=== PATIENT | male | born 1975 | race Caucasian/White ===

== ENCOUNTER 2020-09-10 18:58 | Inpatient (IN) ==
[2020-09-10] MEDS ORDERED: ALPRAZolam 0.5 MG TABLET PO ONE (19:30)
[2020-09-10 20:03] LABS: Bilirubin,Urine Negative (Negative); Blood,Urine Negative (Negative); Clarity,Urine Clear (Clear); Color,Urine Light-Yellow (Yellow); Glucose,Urine (UA) Normal (Normal); Ketones,Urine Negative (Negative); Leukocyte Esterase,Urine Negative (Negative); Nitrite,Urine Negative (Negative); PH,Urine 6.5 pH Units (5.0-8.0); Protein,Urine Trace mg/dL (Neg-Trace); Specific Gravity,Urine 1.022 (1.010-1.025); Urobilinogen,Urine Normal (Normal)
[2020-09-10 20:05] LABS: Basophils # 0.1 K/mcL (0.0-0.2); Basophils % 0.5 %; Eosinophils # 0.1 K/mcL (0.0-0.6); Hemoglobin 14.7 g/dL (12.9-16.9); Immature Granulocytes % 0.3 % (0-4); Lymphocytes # 2.3 K/mcL (0.6-4.6); Lymphocytes % 23.4 %; Mean Corpuscular HGB Conc 32.7 g/dL (31.6-35.5); Mean Corpuscular Hemoglobin 30.9 pg (28.0-33.3); Mean Corpuscular Volume 94.7 fL (83.0-100.0); Mean Platelet Volume 9.9 fL (9.4-12.4); Monocytes # 0.8 K/mcL (0.0-1.3); Monocytes % 7.8 %; Neutrophils # 6.7 K/mcL (1.6-8.9); Platelet Count 194 K/mcL (140-400); Red Blood Count 4.75 M/mcL (4.19-5.50); Red Cell Distribution Width 12.1 % (11.5-14.5)
[2020-09-10 20:17] LABS: Amphetamine Screen,Urine Negative ng/mL (Cutoff=1000); Barbiturate Screen,Urine Negative ng/mL (Cutoff=200); Benzodiazepines Screen,Urine Negative ng/mL (Cutoff=200); Cannabinoid Screen,Urine Negative ng/mL (Cutoff = 50); Cocaine Screen,Urine Negative ng/mL (Cutoff= 300); Opiate Screen,Urine Negative ng/mL (Cutoff=300); Phencyclidine Screen,Urine Negative ng/mL (Cutoff=25)
[2020-09-10 20:19] LABS: Estimated Average Glucose 137 mg/dl
[2020-09-10 20:29] LABS: Acetaminophen < 10 mcg/mL (10-20); BUN/Creatinine Ratio 13 (6-26); Blood Urea Nitrogen 11 mg/dL (6-20); Calcium 8.9 mg/dL (8.6-10.3); Carbon Dioxide 28 mEq/L (23-29); Chloride 103 mEq/L (98-107); Chol/HDL Ratio 4.3 (0-4.9); Cholesterol 108 mg/dL (< 200); Ethanol < 10 mg/dL (Less than 10); Glucose 188 mg/dL (70-105); HDL Cholesterol 25 mg/dL (40-59); LDL Cholesterol,Calculated 23 mg/dL (< 100); Osmolality,Calculated 300 (280-300); Potassium 3.7 mEq/L (3.5-5.1); Salicylate < 2.5 mg/dL (15.0-30.0); Sodium 143 mEq/L (136-145); Triglycerides 301 mg/dL (< 150); eGFR For African Americans > 60 (> 60); eGFR For Non-African Americans > 60 (> 60)
[2020-09-10] MEDS ORDERED: MOM Conc 10 ML UD.LIQ PO PRN (21:44)
[2020-09-10] MEDS ORDERED: hydrOXYzine pamoate 25 MG CAPSULE PO PRN (21:44)
[2020-09-10] MEDS ORDERED: *HR* LORazepam 2 MG/ML VIAL IM PRN (21:44)
[2020-09-10] MEDS ORDERED: *HR* LORazepam 1 MG TABLET PO PRN (21:44)
[2020-09-11] MEDS: Acetaminophen 325 MG TABLET PO PRN (03:52)
[2020-09-11] MEDS: hydrOXYzine pamoate 25 MG CAPSULE PO PRN ×2 (03:52→17:35)
[2020-09-11] MEDS: Famotidine 20 MG TABLET PO SCH ×2 (06:36→15:44)
[2020-09-11] MEDS: OLANZapine 10 MG TAB.RAPDIS PO SCH ×2 (08:43→20:49)
[2020-09-11] MEDS: *HR* Metformin 500 MG TABLET PO SCH ×2 (08:43→16:42)
[2020-09-11] MEDS: CarBAMazepine XR (12 hr) 100 MG TAB PO SCH ×2 (08:43→20:49)
[2020-09-11] MEDS: lisinopriL 20 MG TABLET PO SCH (08:44)
[2020-09-11] MEDS: Metoprolol XL (24 HR) Succ 50 MG TAB.ER.24H PO SCH (08:44)
[2020-09-11] MEDS ORDERED: Gabapentin 400 MG CAPSULE PO SCH ×2 (09:00→15:00)
[2020-09-11] MEDS: Nicotine 2 MG GUM BC PRN ×2 (10:42→17:39)
[2020-09-11] MEDS: modafiniL 100 MG TABLET PO SCH (13:04)
[2020-09-11] MEDS: traZODone 50 MG TABLET PO PRN (20:49)
[2020-09-12] MEDS: Acetaminophen 325 MG TABLET PO PRN (03:54)
[2020-09-12] MEDS: Famotidine 20 MG TABLET PO SCH ×2 (06:17→16:59)
[2020-09-12] MEDS: OLANZapine 10 MG TAB.RAPDIS PO SCH ×2 (08:50→21:00)
[2020-09-12] MEDS: CarBAMazepine XR (12 hr) 100 MG TAB PO SCH ×2 (08:50→20:59)
[2020-09-12] MEDS: *HR* Metformin 500 MG TABLET PO SCH ×2 (08:50→16:59)
[2020-09-12] MEDS: lisinopriL 20 MG TABLET PO SCH (08:51)
[2020-09-12] MEDS: modafiniL 100 MG TABLET PO SCH ×2 (08:51→12:35)
[2020-09-12] MEDS: Metoprolol XL (24 HR) Succ 50 MG TAB.ER.24H PO SCH (08:51)
[2020-09-12] MEDS: Nicotine 2 MG GUM BC PRN ×4 (09:00→21:56)
[2020-09-12] MEDS: traZODone 50 MG TABLET PO PRN (21:00)
[2020-09-13] MEDS: Mag Hydrox/Al Hydrox/Simeth 30 ML UDC PO PRN (04:44)
[2020-09-13] MEDS: Famotidine 20 MG TABLET PO SCH ×3 (06:35→21:04)
[2020-09-13] MEDS: *HR* Metformin 500 MG TABLET PO SCH ×2 (08:57→16:37)
[2020-09-13] MEDS: Metoprolol XL (24 HR) Succ 50 MG TAB.ER.24H PO SCH (08:57)
[2020-09-13] MEDS: Acetaminophen 325 MG TABLET PO PRN (08:58)
[2020-09-13] MEDS: modafiniL 100 MG TABLET PO SCH ×2 (08:58→11:18)
[2020-09-13] MEDS: lisinopriL 20 MG TABLET PO SCH (08:58)
[2020-09-13] MEDS: Nicotine 2 MG GUM BC PRN ×3 (08:59→18:52)
[2020-09-13] MEDS: CarBAMazepine XR (12 hr) 100 MG TAB PO SCH ×2 (10:01→21:04)
[2020-09-13] MEDS: traZODone 50 MG TABLET PO PRN (21:04)
[2020-09-13] MEDS: OLANZapine 10 MG TAB.RAPDIS PO SCH (21:05)
[2020-09-14] MEDS: Acetaminophen 325 MG TABLET PO PRN (06:45)
[2020-09-14] MEDS: Mag Hydrox/Al Hydrox/Simeth 30 ML UDC PO PRN (06:46)
[2020-09-14] MEDS: lisinopriL 20 MG TABLET PO SCH (09:30)
[2020-09-14] MEDS: Famotidine 20 MG TABLET PO SCH ×2 (09:30→21:00)
[2020-09-14] MEDS: modafiniL 100 MG TABLET PO SCH ×2 (09:31→13:18)
[2020-09-14] MEDS: Metoprolol XL (24 HR) Succ 50 MG TAB.ER.24H PO SCH (09:32)
[2020-09-14] MEDS: *HR* Metformin 500 MG TABLET PO SCH ×2 (09:33→16:52)
[2020-09-14] MEDS: Nicotine 2 MG GUM BC PRN ×3 (09:37→18:00)
[2020-09-14] MEDS: CarBAMazepine XR (12 hr) 100 MG TAB PO SCH ×2 (13:12→21:46)
[2020-09-14] MEDS: OLANZapine 10 MG TAB.RAPDIS PO SCH (21:00)
[2020-09-14] MEDS: traZODone 50 MG TABLET PO PRN (21:05)
[2020-09-15] MEDS: Acetaminophen 325 MG TABLET PO PRN (03:07)
[2020-09-15] MEDS: Nicotine 2 MG GUM BC PRN (08:58)
[2020-09-15 09:33] VITALS: BP 119/80
[2020-09-15] MEDS: *HR* Metformin 500 MG TABLET PO SCH (09:33)
[2020-09-15] MEDS: Famotidine 20 MG TABLET PO SCH (09:33)
[2020-09-15] MEDS: Metoprolol XL (24 HR) Succ 50 MG TAB.ER.24H PO SCH (09:34)
[2020-09-15] MEDS: modafiniL 100 MG TABLET PO SCH (09:35)
[2020-09-15] MEDS: lisinopriL 20 MG TABLET PO SCH (09:35)
[2020-09-15] MEDS: CarBAMazepine XR (12 hr) 100 MG TAB PO SCH (10:32)
== END 2020-09-15 10:05 | disposition home or self-care (01) | DRG 885 ==
LOC: EMEROOARM 18:58 → 1ANU 21:35
PROVIDERS: ADMIT Psychiatry & Neurology Forensic Psychiatry; ATTEND Psychiatry & Neurology Forensic Psychiatry

== ENCOUNTER 2021-01-12 19:06 | Inpatient (IN) ==
[2021-01-12 19:57] LABS: Bilirubin,Urine Negative (Negative); Blood,Urine Negative (Negative); Clarity,Urine Clear (Clear); Color,Urine Yellow (Yellow); Glucose,Urine (UA) Normal (Normal); Ketones,Urine Negative (Negative); Leukocyte Esterase,Urine Negative (Negative); Nitrite,Urine Negative (Negative); Protein,Urine Trace mg/dL (Neg-Trace); Specific Gravity,Urine 1.027 (1.010-1.025); Urobilinogen,Urine Normal (Normal)
[2021-01-12 20:07] LABS: Amphetamine Screen,Urine Negative ng/mL (Cutoff=1000); Barbiturate Screen,Urine Negative ng/mL (Cutoff=200); Benzodiazepines Screen,Urine Negative ng/mL (Cutoff=200); Cannabinoid Screen,Urine Negative ng/mL (Cutoff = 50); Cocaine Screen,Urine Negative ng/mL (Cutoff= 300); Opiate Screen,Urine Negative ng/mL (Cutoff=300); Phencyclidine Screen,Urine Negative ng/mL (Cutoff=25)
[2021-01-12] MEDS ORDERED: *HR* LORazepam 1 MG TABLET PO ONE (20:11)
[2021-01-12 20:19] LABS: Acetaminophen < 10 mcg/mL (10-20); BUN/Creatinine Ratio 16 (6-26); Blood Urea Nitrogen 14 mg/dL (6-20); Calcium 9.7 mg/dL (8.6-10.3); Carbon Dioxide 30 mEq/L (23-29); Chloride 103 mEq/L (98-107); Chol/HDL Ratio 4.8 (0-4.9); Cholesterol 126 mg/dL (< 200); Ethanol < 10 mg/dL (Less than 10); Glucose 131 mg/dL (70-105); HDL Cholesterol 26 mg/dL (40-59); LDL Cholesterol,Calculated 41 mg/dL (< 100); Osmolality,Calculated 294 (280-300); Potassium 3.7 mEq/L (3.5-5.1); Salicylate < 2.5 mg/dL (15.0-30.0); Sodium 141 mEq/L (136-145); Triglycerides 294 mg/dL (< 150); eGFR For African Americans > 60 (> 60); eGFR For Non-African Americans > 60 (> 60)
[2021-01-12 21:08] LABS: Basophils # 0.1 K/mcL (0.0-0.2); Basophils % 0.6 %; Eosinophils # 0.2 K/mcL (0.0-0.6); Eosinophils % 1.5 %; Hematocrit 44.9 % (37.5-50.1); Hemoglobin 14.5 g/dL (12.9-16.9); Immature Granulocytes % 0.4 % (0-4); Lymphocytes # 2.9 K/mcL (0.6-4.6); Lymphocytes % 26.5 %; Mean Corpuscular HGB Conc 32.3 g/dL (31.6-35.5); Mean Corpuscular Volume 95.9 fL (83.0-100.0); Mean Platelet Volume 9.2 fL (9.4-12.4); Monocytes # 0.8 K/mcL (0.0-1.3); Monocytes % 7.5 %; Neutrophils # 6.8 K/mcL (1.6-8.9); Platelet Count 204 K/mcL (140-400); Red Blood Count 4.68 M/mcL (4.19-5.50); Red Cell Distribution Width 12.4 % (11.5-14.5); Segmented Neutrophils % 63.5 %; White Blood Count 10.7 K/mcL (4.3-11.1)
[2021-01-12 21:13] LABS: Estimated Average Glucose 126 mg/dl
[2021-01-12] MEDS ORDERED: hydrOXYzine pamoate 25 MG CAPSULE PO PRN (23:52)
[2021-01-12] MEDS ORDERED: traZODone 50 MG TABLET PO PRN (23:52)
[2021-01-12] MEDS ORDERED: MOM Conc 10 ML UD.LIQ PO PRN (23:52)
[2021-01-12] MEDS ORDERED: *HR* LORazepam 1 MG TABLET PO PRN (23:52)
[2021-01-12] MEDS ORDERED: Mag Hydrox/Al Hydrox/Simeth 30 ML UDC PO PRN (23:52)
[2021-01-12] MEDS ORDERED: *HR* LORazepam 2 MG/ML VIAL IM PRN (23:52)
[2021-01-13] MEDS: Ibuprofen 400 MG TABLET PO PRN (06:13)
[2021-01-13] MEDS: Metoprolol XL (24 HR) Succ 50 MG TAB.ER.24H PO SCH (08:29)
[2021-01-13] MEDS: Gabapentin 300 MG CAPSULE PO SCH ×3 (08:31→20:52)
[2021-01-13] MEDS: lisinopriL 20 MG TABLET PO SCH (08:32)
[2021-01-13] MEDS: Famotidine 20 MG TABLET PO SCH ×2 (08:32→20:53)
[2021-01-13] MEDS: *HR* Metformin 500 MG TABLET PO SCH ×2 (08:32→16:35)
[2021-01-13] MEDS: Gabapentin 400 MG CAPSULE PO SCH ×3 (08:33→20:52)
[2021-01-13] MEDS: CarBAMazepine XR (12 hr) 100 MG TAB PO SCH ×2 (08:33→20:53)
[2021-01-13] MEDS ORDERED: OLANZapine 10 MG TAB.RAPDIS PO SCH (09:00)
[2021-01-13] MEDS: Nicotine 2 MG GUM BC PRN ×3 (11:16→18:59)
[2021-01-13] MEDS: modafiniL 100 MG TABLET PO SCH (12:23)
[2021-01-13] MEDS ORDERED: Ondansetron ODT 4 MG TAB.RAPDIS SL ONE (15:21)
[2021-01-13] MEDS: OLANZapine 10 MG TAB.RAPDIS PO SCH (20:53)
[2021-01-14] MEDS: CarBAMazepine XR (12 hr) 100 MG TAB PO SCH ×2 (08:27→20:37)
[2021-01-14] MEDS: *HR* Metformin 500 MG TABLET PO SCH ×2 (08:28→16:52)
[2021-01-14] MEDS: Metoprolol XL (24 HR) Succ 50 MG TAB.ER.24H PO SCH (08:29)
[2021-01-14] MEDS: Famotidine 20 MG TABLET PO SCH ×2 (08:29→20:36)
[2021-01-14] MEDS: Gabapentin 300 MG CAPSULE PO SCH ×3 (08:31→20:35)
[2021-01-14] MEDS: Gabapentin 400 MG CAPSULE PO SCH ×3 (08:32→20:35)
[2021-01-14] MEDS: modafiniL 100 MG TABLET PO SCH ×2 (08:33→12:41)
[2021-01-14] MEDS: lisinopriL 20 MG TABLET PO SCH (08:33)
[2021-01-14] MEDS: Nicotine 2 MG GUM BC PRN ×3 (08:37→21:29)
[2021-01-14] MEDS: Loratadine 10 MG TABLET PO SCH (13:46)
[2021-01-14] MEDS ORDERED: Ondansetron ODT 4 MG TAB.RAPDIS SL PRN (16:06)
[2021-01-14] MEDS: hydrOXYzine pamoate 25 MG CAPSULE PO PRN (18:06)
[2021-01-14] MEDS: Melatonin 3 MG TABLET PO SCH (20:34)
[2021-01-14] MEDS: OLANZapine 10 MG TAB.RAPDIS PO SCH (20:36)
[2021-01-15] MEDS: Ibuprofen 400 MG TABLET PO PRN (00:12)
[2021-01-15] MEDS: hydrOXYzine pamoate 25 MG CAPSULE PO PRN (09:01)
[2021-01-15] MEDS: Loratadine 10 MG TABLET PO SCH (09:02)
[2021-01-15] MEDS: Gabapentin 400 MG CAPSULE PO SCH ×3 (09:03→21:01)
[2021-01-15] MEDS: lisinopriL 20 MG TABLET PO SCH (09:03)
[2021-01-15] MEDS: modafiniL 100 MG TABLET PO SCH ×2 (09:03→12:51)
[2021-01-15] MEDS: *HR* Metformin 500 MG TABLET PO SCH ×2 (09:04→17:44)
[2021-01-15] MEDS: Famotidine 20 MG TABLET PO SCH ×2 (09:04→21:02)
[2021-01-15] MEDS: Gabapentin 300 MG CAPSULE PO SCH ×3 (09:04→21:00)
[2021-01-15] MEDS: Metoprolol XL (24 HR) Succ 50 MG TAB.ER.24H PO SCH (09:05)
[2021-01-15] MEDS: CarBAMazepine XR (12 hr) 100 MG TAB PO SCH ×2 (09:06→20:59)
[2021-01-15] MEDS: Nicotine 2 MG GUM BC PRN (14:18)
[2021-01-15] MEDS: Melatonin 3 MG TABLET PO SCH (20:57)
[2021-01-15] MEDS: OLANZapine 10 MG TAB.RAPDIS PO SCH (21:02)
[2021-01-16] MEDS: Gabapentin 300 MG CAPSULE PO SCH ×3 (08:18→20:49)
[2021-01-16] MEDS: CarBAMazepine XR (12 hr) 100 MG TAB PO SCH (08:18)
[2021-01-16] MEDS: modafiniL 100 MG TABLET PO SCH ×2 (08:18→11:46)
[2021-01-16] MEDS: Gabapentin 400 MG CAPSULE PO SCH ×3 (08:18→20:49)
[2021-01-16] MEDS: lisinopriL 20 MG TABLET PO SCH (08:19)
[2021-01-16] MEDS: *HR* Metformin 500 MG TABLET PO SCH ×2 (08:19→17:07)
[2021-01-16] MEDS: Famotidine 20 MG TABLET PO SCH ×2 (08:19→20:46)
[2021-01-16] MEDS: Metoprolol XL (24 HR) Succ 50 MG TAB.ER.24H PO SCH (08:19)
[2021-01-16] MEDS: Loratadine 10 MG TABLET PO SCH (08:20)
[2021-01-16] MEDS: Nicotine 2 MG GUM BC PRN (12:53)
[2021-01-16] MEDS: Melatonin 3 MG TABLET PO SCH (20:47)
[2021-01-16] MEDS: OLANZapine 10 MG TAB.RAPDIS PO SCH (20:48)
[2021-01-16] MEDS ORDERED: CarBAMazepine XR (12 hr) 100 MG TAB PO SCH (21:00)
[2021-01-17] MEDS ORDERED: CarBAMazepine XR (12 hr) 100 MG TAB PO SCH (09:00)
[2021-01-17 09:06] VITALS: BP 102/58
[2021-01-17] MEDS: *HR* Metformin 500 MG TABLET PO SCH (09:19)
[2021-01-17] MEDS: modafiniL 100 MG TABLET PO SCH ×2 (09:19→11:46)
[2021-01-17] MEDS: Metoprolol XL (24 HR) Succ 50 MG TAB.ER.24H PO SCH (09:20)
[2021-01-17] MEDS: Famotidine 20 MG TABLET PO SCH (09:20)
[2021-01-17] MEDS: Loratadine 10 MG TABLET PO SCH (09:20)
[2021-01-17] MEDS: Gabapentin 300 MG CAPSULE PO SCH ×2 (09:20→15:39)
[2021-01-17] MEDS: Gabapentin 400 MG CAPSULE PO SCH ×2 (09:20→15:39)
[2021-01-17] MEDS: lisinopriL 20 MG TABLET PO SCH (09:23)
[2021-01-17] MEDS: Nicotine 2 MG GUM BC PRN (09:25)
== END 2021-01-17 16:35 | disposition home or self-care (01) | DRG 885 ==
LOC: EMEROOARM 19:06 → 1ANU 19:06 → SUATTDRO 23:49 → OBSVTOIN 23:49 → 1ANU 01-13 00:20
PROVIDERS: ADMIT Psychiatry & Neurology Psychiatry; ATTEND Psychiatry & Neurology Psychiatry

== ENCOUNTER 2022-05-13 13:19 | Inpatient (IN) ==
[2022-05-13 14:48] LABS: Bilirubin,Urine Negative (Negative); Blood,Urine Negative (Negative); Clarity,Urine Clear (Clear); Color,Urine Light-Yellow (Yellow); Glucose,Urine (UA) Normal (Normal); Ketones,Urine Negative (Negative); Leukocyte Esterase,Urine Negative (Negative); Nitrite,Urine Negative (Negative); Protein,Urine Trace mg/dL (Neg-Trace); Specific Gravity,Urine 1.016 (1.010-1.025); Urobilinogen,Urine Normal (Normal)
[2022-05-13 14:52] LABS: Acetaminophen < 10 mcg/mL (10-20); Alanine Aminotransferase 48 Units/L (7-52); Albumin 4.1 g/dL (3.5-5.7); Albumin/Globulin Ratio 1.6 (1.1-2.2); Alkaline Phosphatase 125 Units/L (34-104); Aspartate Amino Transferase 31 Units/L (13-39); BUN/Creatinine Ratio 21 (6-26); Basophils # 0.1 K/mcL (0.0-0.2); Basophils % 0.8 %; Bilirubin,Direct 0.1 mg/dL (0.0-0.2); Bilirubin,Indirect 0.2 mg/dL (0.0-1.0); Bilirubin,Total 0.3 mg/dL (0.3-1.0); Blood Urea Nitrogen 26 mg/dL (6-20); Calcium 8.8 mg/dL (8.6-10.3); Carbon Dioxide 21 mEq/L (23-29); Chloride 105 mEq/L (98-107); Eosinophils # 0.2 K/mcL (0.0-0.6); Eosinophils % 1.8 %; Ethanol < 10 mg/dL (Less than 10); Globulin 2.5 g/dL (2.4-3.5); Glucose 128 mg/dL (70-105); Hematocrit 39.5 % (37.5-50.1); Immature Granulocytes % 0.5 % (0-4); Lymphocytes # 2.7 K/mcL (0.6-4.6); Mean Corpuscular HGB Conc 32.9 g/dL (31.6-35.5); Mean Corpuscular Hemoglobin 31.7 pg (28.0-33.3); Mean Corpuscular Volume 96.3 fL (83.0-100.0); Mean Platelet Volume 9.6 fL (9.4-12.4); Monocytes # 0.8 K/mcL (0.0-1.3); Monocytes % 7.1 %; Neutrophils # 6.7 K/mcL (1.6-8.9); Osmolality,Calculated 286 (280-300); Platelet Count 231 K/mcL (140-400); Potassium 4.5 mEq/L (3.5-5.1); Red Cell Distribution Width 12.5 % (11.5-14.5); Salicylate < 2.5 mg/dL (15.0-30.0); Segmented Neutrophils % 63.8 %; Sodium 135 mEq/L (136-145); Total Protein 6.6 g/dL (6.4-8.9); White Blood Count 10.5 K/mcL (4.3-11.1); eGFR For African Americans > 60 (> 60); eGFR For Non-African Americans > 60 (> 60)
[2022-05-13 15:03] LABS: Thyroid Stimulating Hormone 1.771 mcIU/mL (0.340-5.600)
[2022-05-13 15:08] LABS: Amphetamine Screen,Urine Negative ng/mL (Cutoff=1000); Barbiturate Screen,Urine Negative ng/mL (Cutoff=200); Benzodiazepines Screen,Urine Negative ng/mL (Cutoff=200); Cannabinoid Screen,Urine Negative ng/mL (Cutoff = 50); Cocaine Screen,Urine Negative ng/mL (Cutoff= 300); Opiate Screen,Urine Negative ng/mL (Cutoff=300); Phencyclidine Screen,Urine Negative ng/mL (Cutoff=25)
[2022-05-13 19:10] LABS: Influenza A PCR Negative (Negative); Influenza B PCR Negative (Negative); Resp. Syncytial Virus PCR Negative (Negative); SARS-CoV-2 by PCR (In House) Negative (Negative)
[2022-05-13] MEDS ORDERED: *HR* LORazepam 2 MG/ML VIAL IM PRN (19:45)
[2022-05-13] MEDS ORDERED: Haloperidol Lactate 5 MG/ML VIAL IM PRN (19:45)
[2022-05-13] MEDS ORDERED: haloperidoL 5 MG TABLET PO PRN (19:45)
[2022-05-13] MEDS ORDERED: *HR* LORazepam 1 MG TABLET PO PRN (19:45)
[2022-05-13] MEDS ORDERED: hydrOXYzine pamoate 25 MG CAPSULE PO PRN (19:47)
[2022-05-13] MEDS ORDERED: modafiniL 100 MG TABLET PO SCH (21:00)
[2022-05-13] MEDS: Melatonin 3 MG TABLET PO SCH (21:50)
[2022-05-13] MEDS: CarBAMazepine XR (12 hr) 100 MG TAB PO SCH (21:50)
[2022-05-13] MEDS: OLANZapine 10 MG TAB.RAPDIS PO SCH (21:50)
[2022-05-13] MEDS: Famotidine 20 MG TABLET PO SCH (21:50)
[2022-05-13] MEDS: *HR* Metformin 500 MG TABLET PO SCH (21:51)
[2022-05-13] MEDS: Gabapentin 400 MG CAPSULE PO SCH (21:51)
[2022-05-13] MEDS: Gabapentin 300 MG CAPSULE PO SCH (21:51)
[2022-05-14] MEDS: CarBAMazepine XR (12 hr) 100 MG TAB PO SCH ×2 (08:55→21:01)
[2022-05-14] MEDS: Metoprolol XL (24 HR) Succ 50 MG TAB.ER.24H PO SCH (08:55)
[2022-05-14] MEDS: Gabapentin 300 MG CAPSULE PO SCH ×3 (08:55→21:02)
[2022-05-14] MEDS: Famotidine 20 MG TABLET PO SCH ×2 (08:56→21:03)
[2022-05-14] MEDS: modafiniL 100 MG TABLET PO SCH ×2 (08:56→13:18)
[2022-05-14] MEDS: Gabapentin 400 MG CAPSULE PO SCH ×3 (08:56→21:03)
[2022-05-14] MEDS: *HR* Metformin 500 MG TABLET PO SCH ×2 (08:56→21:01)
[2022-05-14] MEDS: lisinopriL 20 MG TABLET PO SCH (08:57)
[2022-05-14] MEDS: Acetaminophen 325 MG TABLET PO PRN ×2 (11:04→21:02)
[2022-05-14] MEDS: Ketoconazole 2% CRM 15 GM TUBE TP SCH (11:05)
[2022-05-14] MEDS: Nicotine 21 MG PATCH.TD24 TD SCH (13:19)
[2022-05-14] MEDS: OLANZapine 10 MG TAB.RAPDIS PO SCH (21:02)
[2022-05-14] MEDS: Melatonin 3 MG TABLET PO SCH (21:02)
[2022-05-15] MEDS: Acetaminophen 325 MG TABLET PO PRN ×3 (02:18→20:11)
[2022-05-15 09:02] LABS: Chol/HDL Ratio 4.5 (0-4.9); Cholesterol 141 mg/dL (< 200); HDL Cholesterol 31 mg/dL (40-59); Triglycerides 512 mg/dL (< 150)
[2022-05-15] MEDS: Nicotine 21 MG PATCH.TD24 TD SCH (09:14)
[2022-05-15] MEDS: CarBAMazepine XR (12 hr) 100 MG TAB PO SCH ×2 (09:16→20:54)
[2022-05-15] MEDS: Metoprolol XL (24 HR) Succ 50 MG TAB.ER.24H PO SCH (09:16)
[2022-05-15] MEDS: modafiniL 100 MG TABLET PO SCH ×2 (09:18→11:17)
[2022-05-15] MEDS: lisinopriL 20 MG TABLET PO SCH (09:18)
[2022-05-15] MEDS: Gabapentin 300 MG CAPSULE PO SCH ×3 (09:19→20:54)
[2022-05-15] MEDS: *HR* Metformin 500 MG TABLET PO SCH ×2 (09:19→20:52)
[2022-05-15] MEDS: Gabapentin 400 MG CAPSULE PO SCH ×3 (09:19→20:55)
[2022-05-15] MEDS: Famotidine 20 MG TABLET PO SCH ×2 (09:19→20:54)
[2022-05-15] MEDS: Ketoconazole 2% CRM 15 GM TUBE TP SCH (09:26)
[2022-05-15 12:00] LABS: Estimated Average Glucose 140 mg/dl; Hemoglobin A1C 6.5 %
[2022-05-15] MEDS ORDERED: CarBAMazepine XR (12 hr) 100 MG TAB PO ONE (13:45)
[2022-05-15] MEDS: Melatonin 3 MG TABLET PO SCH (20:53)
[2022-05-15] MEDS: OLANZapine 10 MG TAB.RAPDIS PO SCH (20:55)
[2022-05-16] MEDS: CarBAMazepine XR (12 hr) 100 MG TAB PO SCH ×2 (09:08→21:11)
[2022-05-16] MEDS: Gabapentin 300 MG CAPSULE PO SCH ×3 (09:09→21:10)
[2022-05-16] MEDS: modafiniL 100 MG TABLET PO SCH ×2 (09:09→11:55)
[2022-05-16] MEDS: Famotidine 20 MG TABLET PO SCH ×2 (09:09→21:10)
[2022-05-16] MEDS: Gabapentin 400 MG CAPSULE PO SCH ×3 (09:09→21:10)
[2022-05-16] MEDS: lisinopriL 20 MG TABLET PO SCH (09:09)
[2022-05-16] MEDS: *HR* Metformin 500 MG TABLET PO SCH ×2 (09:10→21:11)
[2022-05-16] MEDS: Metoprolol XL (24 HR) Succ 50 MG TAB.ER.24H PO SCH (09:10)
[2022-05-16] MEDS: Nicotine 21 MG PATCH.TD24 TD SCH (09:10)
[2022-05-16] MEDS: Ketoconazole 2% CRM 15 GM TUBE TP SCH (09:18)
[2022-05-16] MEDS: Acetaminophen 325 MG TABLET PO PRN ×2 (11:24→17:24)
[2022-05-16] MEDS ORDERED: hydrOXYzine pamoate 25 MG CAPSULE PO PRN (14:31)
[2022-05-16] MEDS: hydrOXYzine pamoate 25 MG CAPSULE PO SCH (18:47)
[2022-05-16] MEDS: Melatonin 3 MG TABLET PO SCH (21:09)
[2022-05-16] MEDS: OLANZapine 10 MG TAB.RAPDIS PO SCH (21:10)
[2022-05-17] MEDS: hydrOXYzine pamoate 25 MG CAPSULE PO SCH ×4 (02:11→18:17)
[2022-05-17] MEDS: Ibuprofen 600 MG TABLET PO PRN ×2 (03:22→13:48)
[2022-05-17] MEDS: Nicotine 21 MG PATCH.TD24 TD SCH (08:55)
[2022-05-17] MEDS: modafiniL 100 MG TABLET PO SCH ×2 (08:57→11:19)
[2022-05-17] MEDS: Metoprolol XL (24 HR) Succ 50 MG TAB.ER.24H PO SCH (08:57)
[2022-05-17] MEDS: CarBAMazepine XR (12 hr) 100 MG TAB PO SCH ×2 (08:57→21:06)
[2022-05-17] MEDS: *HR* Metformin 500 MG TABLET PO SCH ×2 (08:58→21:07)
[2022-05-17] MEDS: Gabapentin 300 MG CAPSULE PO SCH ×3 (08:58→21:07)
[2022-05-17] MEDS: Gabapentin 400 MG CAPSULE PO SCH ×3 (08:58→21:07)
[2022-05-17] MEDS: Famotidine 20 MG TABLET PO SCH ×2 (08:58→21:07)
[2022-05-17] MEDS: lisinopriL 20 MG TABLET PO SCH (08:59)
[2022-05-17] MEDS: Ketoconazole 2% CRM 15 GM TUBE TP SCH (09:03)
[2022-05-17] MEDS: Acetaminophen 325 MG TABLET PO PRN (18:17)
[2022-05-17] MEDS: Melatonin 3 MG TABLET PO SCH (21:06)
[2022-05-17] MEDS: OLANZapine 10 MG TAB.RAPDIS PO SCH (21:08)
[2022-05-18] MEDS: hydrOXYzine pamoate 25 MG CAPSULE PO SCH ×4 (01:25→16:19)
[2022-05-18] MEDS: Nicotine 21 MG PATCH.TD24 TD SCH (09:20)
[2022-05-18] MEDS: Ibuprofen 600 MG TABLET PO PRN ×2 (09:21→16:21)
[2022-05-18] MEDS: CarBAMazepine XR (12 hr) 100 MG TAB PO SCH ×2 (09:21→20:29)
[2022-05-18] MEDS: *HR* Metformin 500 MG TABLET PO SCH ×2 (09:22→20:30)
[2022-05-18] MEDS: Gabapentin 300 MG CAPSULE PO SCH ×3 (09:22→20:30)
[2022-05-18] MEDS: modafiniL 100 MG TABLET PO SCH ×2 (09:23→11:28)
[2022-05-18] MEDS: Metoprolol XL (24 HR) Succ 50 MG TAB.ER.24H PO SCH (09:23)
[2022-05-18] MEDS: lisinopriL 20 MG TABLET PO SCH (09:23)
[2022-05-18] MEDS: Gabapentin 400 MG CAPSULE PO SCH ×3 (09:23→20:30)
[2022-05-18] MEDS: Famotidine 20 MG TABLET PO SCH ×2 (09:24→20:30)
[2022-05-18] MEDS: Ketoconazole 2% CRM 15 GM TUBE TP SCH (09:28)
[2022-05-18] MEDS: Acetaminophen 325 MG TABLET PO PRN ×2 (11:30→18:29)
[2022-05-18] MEDS: Baclofen 10 MG TABLET PO SCH ×2 (15:02→20:29)
[2022-05-18] MEDS: OLANZapine 10 MG TAB.RAPDIS PO SCH (20:29)
[2022-05-18] MEDS: Melatonin 3 MG TABLET PO SCH (20:29)
[2022-05-19] MEDS: Famotidine 20 MG TABLET PO SCH (09:50)
[2022-05-19] MEDS: *HR* Metformin 500 MG TABLET PO SCH (09:50)
[2022-05-19] MEDS: modafiniL 100 MG TABLET PO SCH ×2 (09:51→11:45)
[2022-05-19] MEDS: Baclofen 10 MG TABLET PO SCH (09:53)
[2022-05-19] MEDS: CarBAMazepine XR (12 hr) 100 MG TAB PO SCH (09:53)
[2022-05-19 09:54] VITALS: PULSE 113; TEMP 97.6; O2SAT 94
[2022-05-19] MEDS: Nicotine 21 MG PATCH.TD24 TD SCH (09:55)
[2022-05-19] MEDS: hydrOXYzine pamoate 25 MG CAPSULE PO SCH ×3 (10:08→11:45)
[2022-05-19 10:46] VITALS: BP 124/74
[2022-05-19] MEDS: lisinopriL 20 MG TABLET PO SCH (10:47)
[2022-05-19] MEDS: Gabapentin 400 MG CAPSULE PO SCH (10:47)
[2022-05-19] MEDS: Gabapentin 300 MG CAPSULE PO SCH (10:48)
[2022-05-19] MEDS: Metoprolol XL (24 HR) Succ 50 MG TAB.ER.24H PO SCH (10:48)
[2022-05-19] MEDS: Ketoconazole 2% CRM 15 GM TUBE TP SCH (10:49)
== END 2022-05-19 12:05 | disposition home or self-care (01) | DRG 885 ==
LOC: EMEROOARM 13:19 → 1ANU 20:18
PROVIDERS: ADMIT Psychiatry & Neurology Forensic Psychiatry; ATTEND Psychiatry & Neurology Forensic Psychiatry